=== PATIENT | female | born 1945 ===

== ENCOUNTER 2017-11-27 11:25 | Inpatient (IN) | payer MEDICARE, MEDICAID ==
[2017-11-27 11:29] VITALS: BMI 47.4
--- NOTE | 2017-11-27 11:51 | ED PDOC ---
HPI: Psych/Substance Abuse Time Seen by Provider: 11/27/17 11:28 Chief Complaint (Nursing): Anxiety Chief Complaint (Provider): Anxiety History Per: Patient, Other ([facility] Brian monroe) History/Exam Limitations: no limitations Onset/Duration Of Symptoms: Hrs Current Symptoms Are (Timing): Still Present Suicide/Self Injury Attempted (Context): None Modifying Factor(s): None Associated Symptoms: Anxiety Additional Complaint(s): 72 year old female was brought here via EMS from [facility] for a psychiatric evaluation for suicidal ideation as reported by staff. Patient states she just feels very anxious this morning. Patient reports she usually takes Antivan for anxiety but states the medication is not helping her and feels no relief. Patient states she just has "too much anxiety". Denies suicidal ideation, homicidal ideation, and any other medical complaint. PMD: Dr. Eckert Past Medical History Reviewed: Historical Data, Nursing Documentation, Vital Signs Vital Signs: Last Vital Signs Temp 97.0 F L 11/27/17 11:34 Pulse 81 11/27/17 11:34 Resp 19 11/27/17 11:34 BP 131/78 11/27/17 11:34 Pulse Ox 98 11/27/17 11:34 - Medical History PMH: Anxiety, Bipolar Disorder, Depression, HTN, Hypercholesterolemia Denies: Alzheimer's Disease, Anemia, Arthritis, Asthma, Atrial Fibrillation, Bronchitis, Cardia Arrhythmia, CHF, COPD, Crohn's Disease, Dementia, Diabetes, Diverticulitis, Emphysema, Fractures, Gastritis, Gall Bladder Disease, Hepatitis , HIV, Hyperthyroidism, Hypothyroidism, Kidney Stones, Migraine, Mitral Valve Prolapse, Multiple Sclerosis, Osteoporosis, Pancreatitis, Parkinson's Disease, Peripheral Edema, Personality Disorder, Pneumonia, Pulmonary Embolism, Chronic Kidney Disease, Rheumatoid Arthritis, Seizures, Sickle Cell Disease, Sexually Transmitted Disease, Sleep Apnea, TIA - Surgical History Surgical History: No Surg Hx Denies: Appendectomy, CABG, Carotid Endarterectomy, Cholecystectomy, Coronary Stent, Pacemaker, Tonsillectomy - Family History Family History: States: Unknown Family Hx - Home Medications Home Medications: Ambulatory Orders Medication Instructions Recorded Acetaminophen [Tylenol 325mg tab] 2 tab PO PRN PRN 07/10/17 Bimatoprost [Lumigan] 1 drop OU HS 07/10/17 Gabapentin [Neurontin] 300 mg PO TID 07/10/17 Acetaminophen [Tylenol 325mg tab] 650 mg PO Q4H PRN tab 07/20/17 Aluminum Hydroxide/Magnesium 30 ml PO DAILY PRN udc 07/20/17 [Maalox Plus 30 ml] Dorzolamide 2%/Timolol 0.5% 1 drop OU BID bottle 07/20/17 [Cosopt 2%-0.5% Opht] Famotidine [Pepcid] 20 mg PO 1000,2200 tab 07/20/17 Gabapentin [Neurontin] 300 mg PO TID cap 07/20/17 LORazepam [Ativan] 1 mg PO HS tab 07/20/17 LORazepam [Ativan] 1.5 mg PO BID tab 07/20/17 Latanoprost 0.005% Opht [Xalatan 1 ml OU HS bottle 07/20/17 Opht] Mirtazapine [Remeron] 15 mg PO HS tab 07/20/17 PARoxetine [Paxil] 30 mg PO HS tab 07/20/17 Polyethylene Glycol/Polyvinyl 1 ml OU TID bottle 07/20/17 [Artificial Tears] amLODIPine [Norvasc] 2.5 mg PO DAILY tab 07/20/17 - Allergies Allergies/Adverse Reactions: Allergies Allergy/AdvReac Type Severity Reaction Status Date / Time propoxyphene [From Darvon] Allergy Unknown ANAPHYLAXIS Verified 07/10/17 21:11 Review of Systems ROS Statement: Except As Marked, All Systems Reviewed And Found Negative Psych: Positive for: Anxiety. Negative for: Suicidal ideation (or homicidal ideation ) Physical Exam - Reviewed Nursing Documentation Reviewed: Yes Vital Signs Reviewed: Yes - Physical Exam Appears: Positive for: Non-toxic, No Acute Distress (comfortable ) Head Exam: Positive for: ATRAUMATIC, NORMOCEPHALIC Skin: Positive for: Normal Color, Warm, Dry Eye Exam: Positive for: Normal appearance ENT: Positive for: Normal ENT Inspection Neck: Positive for: Normal Respiratory: Positive for: Normal Breath Sounds Gastrointestinal/Abdominal: Positive for: Soft. Negative for: Tenderness Back: Positive for: Normal Inspection Extremity: Positive for: Normal ROM Neurologic/Psych: Positive for: Alert, Oriented - Laboratory Results Result Diagrams: 11/27/17 14:06 11/27/17 14:06 - ECG O2 Sat by Pulse Oximetry: 98 (RA) Pulse Ox Interpretation: Normal Medical Decision Making Medical Decision Making: Time: 1134 Impression: Anxiety, Depression Plan: -- Crisis Evaluation -- 1:1 Observation Time: 1337 Plan: -- EKG -- Alcohol Serum -- BMP -- Urine Drug Screen -- CBC with differentials -- Portable CXR -- Urinalysis Time: 1357 CXR Results FINDINGS: LUNGS: No active pulmonary disease. PLEURA: No significant pleural effusion identified, no pneumothorax apparent. CARDIOVASCULAR: Normal. OSSEOUS STRUCTURES: No significant abnormalities. VISUALIZED UPPER ABDOMEN: Normal. OTHER FINDINGS: None. IMPRESSION: No active disease. Vital signs are stable. Labs reviewed. In my opinion there are no current acute medical conditions that contraindicate the placement of this patient in a psychiatric unit. Scribe Attestation: Documented by Kassie Connolly, acting as a scribe for Dr. Anni Hickey MD. Provider Scribe Attestation: All medical record entries made by the Scribe were at my direction and personally dictated by me. I have reviewed the chart and agree that the record accurately reflects my personal performance of the history, physical exam, medical decision making, and the department course for this patient. I have also personally directed, reviewed, and agree with the discharge instructions and disposition. Disposition - Clinical Impression Clinical Impression: Major depressive disorder, Anxiety disorder - Patient ED Disposition Is Patient to be Admitted: Yes Counseled Patient/Family Regarding: Studies Performed, Diagnosis - Disposition Disposition Time: 14:44 Condition: FAIR - Pt Status Changed To: Hospital Disposition Of: Inpatient - Admit Certification Admit to Inpatient:: After my assessment, the patient will require hospitalization for at least two midnights. This is because of the severity of symptoms shown, intensity of services needed, and/or the medical risk in this patient being treated as an outpatient. - POA Present On Arrival: None
--- NOTE | 2017-11-27 13:59 | RAD ---
HISTORY: medical clearance COMPARISON: 08/06/2011 FINDINGS: LUNGS: No active pulmonary disease. PLEURA: No significant pleural effusion identified, no pneumothorax apparent. CARDIOVASCULAR: Normal. OSSEOUS STRUCTURES: No significant abnormalities. VISUALIZED UPPER ABDOMEN: Normal. OTHER FINDINGS: None. IMPRESSION: No active disease.
[2017-11-27 14:17] LABS: SQUAMOUS EPITHIAL 1 /hpf (0-5); URINE BACTERIA OCC (<OCC); URINE BILIRUBIN NEGATIVE (NEGATIVE); URINE BLOOD NEGATIVE (NEGATIVE); URINE CLARITY CLEAR (Clear); URINE COLOR YELLOW (YELLOW); URINE GLUCOSE (UA) NEG (Normal); URINE LEUKOCYTE ESTERASE NEG Leu/uL (Negative); URINE PROTEIN NEGATIVE (NEGATIVE); URINE UROBILINOGEN 0.2-1.0 mg/dL (0.2-1.0)
[2017-11-27 14:19] LABS: BLOOD UREA NITROGEN 20 mg/dl (7-17); CALCIUM 8.9 mg/dL (8.4-10.2); GFR AFRICAN-AMERICAN > 60; GFR NON-AFRICAN AMERICAN > 60
[2017-11-27 14:21] LABS: BASO % 0.4 % (0.0-2.0); EOS # 0.2 K/uL (0.0-0.7); EOS % 2.3 % (0.0-4.0); HEMOGLOBIN 13.5 g/dL (12.0-16.0); LYMPH # 1.2 K/uL (1.0-4.3); LYMPH % 16.4 % (20.0-40.0); MEAN CELL VOLUME 90.7 fl (81.0-99.0); MEAN CORPUSCULAR HEMOGLOBIN 31.3 pg (27.0-31.0); MEAN CORPUSCULAR HGB CONC 34.5 g/dL (33.0-37.0); MEAN PLATELET VOLUME 9.9 fl (7.2-11.7); MONO # 0.5 K/uL (0.0-0.8); MONO % 6.4 % (0.0-10.0); NEUT # 5.5 K/uL (1.8-7.0); NEUT % 74.5 % (50.0-75.0); RBC 4.32 Mil/uL (3.80-5.20); RED CELL DISTRIBUTION WIDTH 13.5 % (11.5-14.5); WHITE BLOOD COUNT 7.4 K/uL (4.8-10.8)
[2017-11-27 14:26] LABS: BARBITURATES, UR NEGATIVE (NEGATIVE); BENZODIAZEPINES, UR NEGATIVE (NEGATIVE); OPIATES, UR NEGATIVE (NEGATIVE); PHENCYCLIDINE, UR NEGATIVE (NEGATIVE)
[2017-11-27 18:25] VITALS: O2SAT 98
[2017-11-27] MEDS ORDERED: Bismuth Subsalicylate 262 mg/15 ml Sus (240 ml) PO PRN (18:26)
[2017-11-27] MEDS ORDERED: Magnesium Hydroxide Susp 30 ml UD PO PRN (18:26)
--- NOTE | 2017-11-27 18:55 | PCM.BM ---
Treatment Plan Problems - Problems identified on initial assessmt Problem 1 Date Initiated: 11/27/17 Time Initiated: 18:54 Assessment reference: NA Status: Active Hopelessness/Helplessness Assessment reference: NA Treatment assets and liabiliti Patient Assests: cooperative, negotiates basic needs Patient Liabilities: medical problems - Milieu Protocol Maintain good personal hygiene: daily Encourage regular showers, daily Remind patient to perform daily oral care, daily Assist patient to perform ADL's Conduct patient checks and document Observation sheet: Q15 minutes Maintain personal safety: every shift Educate patient to report safety concerns to staff, every shift Monitor environment for contraband/sharps Medication safety: Monitor for expected outcome, potential side effects: every shift, Assess barriers to learning: every shift, Assess readiness for medication education: every shift
--- NOTE | 2017-11-27 19:16 | CP.PCM.CON ---
History of Present Illness - History of Present Illness History of Present Illness: 72 yo female with history HTN and anxiety brought [facility] because of suicidal ideation. Review of Systems - Review of Systems All systems: reviewed and no additional remarkable complaints except (aside from those mentioned above, 12 point system review were negative by me) Past Patient History - Infectious Disease Hx of Infectious Diseases: None - Tetanus Immunizations Tetanus Immunization: Unknown - Past Social History Smoking Status: Never Smoked Chewing Tobacco Use: No Cigar Use: No Alcohol: None Home Situation {Lives}: Residential - CARDIAC Hx Atrial Fibrillation: No Hx Cardia Arrhythmia: No Hx Congestive Heart Failure: No Hx Hypercholesterolemia: Yes Hx Hypertension: Yes Hx Mitral Valve Prolapse: No Hx Pacemaker: No Hx Peripheral Edema: No - PULMONARY Hx Asthma: No Hx Bronchitis: No Hx Chronic Obstructive Pulmonary Disease (COPD): No Hx Emphysema: No Hx Pneumonia: No Hx Pulmonary Embolism: No Hx Sleep Apnea: No - NEUROLOGICAL Hx Alzheimer's Disease: No Hx Dementia: No Hx Migraine: No Hx Multiple Sclerosis: No Hx Parkinson's Disease: No Hx Seizures: No Hx Transient Ischemic Attacks (TIA): No - HEENT Hx HEENT Problems: No - RENAL Hx Chronic Kidney Disease: No Hx Kidney Stones: No - ENDOCRINE/METABOLIC Hx Hyperthyroidism: No Hx Hypothyroidism: No - HEMATOLOGICAL/ONCOLOGICAL Hx Anemia: No Hx Human Immunodeficiency Virus (HIV): No Hx Sickle Cell Disease: No - INTEGUMENTARY Hx Dermatological Problems: No - MUSCULOSKELETAL/RHEUMATOLOGICAL Hx Arthritis: No Hx Fractures: No Hx Osteoporosis: No Hx Rheumatoid Arthritis: No - GASTROINTESTINAL Hx Crohn's Disease: No Hx Diverticulitis: No Hx Gall Bladder Disease: No Hx Gastritis: No Hx Pancreatitis: No - GENITOURINARY/GYNECOLOGICAL Hx Sexually Transmitted Disorders: No - PSYCHIATRIC Hx Anxiety: Yes Hx Bipolar Disorder: Yes Hx Depression: Yes - SURGICAL HISTORY Hx Appendectomy: No Hx Carotid Endarterectomy: No Hx Cholecystectomy: No Hx Coronary Artery Bypass Graft: No Hx Coronary Stent: No Hx Tonsillectomy: No - ANESTHESIA Hx Anesthesia: No Meds Allergies/Adverse Reactions: Allergies Allergy/AdvReac Type Severity Reaction Status Date / Time propoxyphene [From Darvon] Allergy Unknown ANAPHYLAXIS Verified 07/10/17 21:11 - Medications Medications: Current Medications Acetaminophen (Tylenol 325mg Tab) 650 mg PO Q4 PRN PRN Reason: Pain, moderate (4-7) Al Hydrox/Mg Hydrox/Simethicone (Maalox Plus 30 Ml) 30 ml PO Q4 PRN PRN Reason: Dyspepsia Amlodipine Besylate (Norvasc) 2.5 mg PO DAILY ARSLAN Artificial Tears (Artificial Tears) 1 drop OU Q6 ARSLAN Bismuth Subsalicylate (Pepto-Bismol) 524 mg PO Q4 PRN PRN Reason: Diarrhea Famotidine (Pepcid) 20 mg PO HS ARSLAN Gabapentin (Neurontin) 300 mg PO TID ARSLAN Latanoprost (Xalatan Opht) 1 drop OU HS ARSLAN Lorazepam (Ativan) 0.5 mg PO HS PRN PRN Reason: Insomnia Stop: 12/11/17 18:27 Lorazepam (Ativan) 0.5 mg PO Q6 PRN PRN Reason: Agitation Lorazepam (Ativan) 0.5 mg IM Q6 PRN PRN Reason: Agitation Magnesium Hydroxide (Milk Of Magnesia) 30 ml PO HS PRN PRN Reason: Constipation Physical Exam - Constitutional Appears: No Acute Distress - Head Exam Head Exam: ATRAUMATIC - Eye Exam Eye Exam: PERRL. absent: Scleral icterus - ENT Exam ENT Exam: Mucous Membranes Moist - Neck Exam Neck exam: Negative for: Meningismus - Respiratory Exam Respiratory Exam: absent: Rales, Rhonchi, Wheezes, Respiratory Distress - Cardiovascular Exam Cardiovascular Exam: REGULAR RHYTHM, +S1, +S2 - GI/Abdominal Exam GI & Abdominal Exam: Soft. absent: Tenderness - Rectal Exam Rectal Exam: Deferred - Neurological Exam Neurological exam: Alert - Psychiatric Exam Psychiatric exam: Anxious - Skin Skin Exam: Dry, Intact Results - Vital Signs Recent Vital Signs: Last Vital Signs Temp 98 F 11/27/17 18:24 Pulse 81 11/27/17 18:24 Resp 18 11/27/17 18:24 BP 130/71 11/27/17 18:24 Pulse Ox 98 11/27/17 18:24 - Labs Result Diagrams: 11/27/17 14:06 11/27/17 14:06 Labs: Laboratory Results - last 24 hr 11/27/17 11/27/17 11/27/17 14:01 14:01 14:06 WBC RBC Hgb Hct MCV MCH MCHC RDW Plt Count MPV Neut % (Auto) Lymph % (Auto) [place] % (Auto) Eos % (Auto) Baso % (Auto) Neut # (Auto) Lymph # (Auto) [place] # (Auto) Eos # (Auto) Baso # (Auto) Sodium 143 Potassium 3.8 Chloride 104 Carbon Dioxide 25 Anion Gap 18 BUN 20 H Creatinine 0.8 Est GFR ( Amer) > 60 Est GFR (Non-Af Amer) > 60 Random Glucose 124 H Calcium 8.9 Urine Color Yellow Urine Clarity Clear Urine pH 6.0 Ur Specific Palm 1.010 Urine Protein Negative Urine Glucose (UA) Neg Urine Ketones Negative Urine Blood Negative Urine Nitrate Negative Urine Bilirubin Negative Urine Urobilinogen 0.2-1.0 Ur Leukocyte Esterase Neg Urine RBC (Auto) < 1 Urine Microscopic WBC 1 Ur Squamous Epith Cells 1 Urine Bacteria Occ H Urine Opiates Screen Negative Urine Methadone Screen Negative Ur Barbiturates Screen Negative Ur Phencyclidine Scrn Negative Ur Amphetamines Screen Negative U Benzodiazepines Scrn Negative U Oth Cocaine Metabols Negative U Cannabinoids Screen Negative Alcohol, Quantitative < 10 11/27/17 14:06 WBC 7.4 RBC 4.32 Hgb 13.5 Hct 39.2 MCV 90.7 MCH 31.3 H MCHC 34.5 RDW 13.5 Plt Count 157 MPV 9.9 Neut % (Auto) 74.5 Lymph % (Auto) 16.4 L [place] % (Auto) 6.4 Eos % (Auto) 2.3 Baso % (Auto) 0.4 Neut # (Auto) 5.5 Lymph # (Auto) 1.2 [place] # (Auto) 0.5 Eos # (Auto) 0.2 Baso # (Auto) 0.0 Sodium Potassium Chloride Carbon Dioxide Anion Gap BUN Creatinine Est GFR ( Amer) Est GFR (Non-Af Amer) Random Glucose Calcium Urine Color Urine Clarity Urine pH Ur Specific Palm Urine Protein Urine Glucose (UA) Urine Ketones Urine Blood Urine Nitrate Urine Bilirubin Urine Urobilinogen Ur Leukocyte Esterase Urine RBC (Auto) Urine Microscopic WBC Ur Squamous Epith Cells Urine Bacteria Urine Opiates Screen Urine Methadone Screen Ur Barbiturates Screen Ur Phencyclidine Scrn Ur Amphetamines Screen U Benzodiazepines Scrn U Oth Cocaine Metabols U Cannabinoids Screen Alcohol, Quantitative Assessment & Plan (1) Suicidal ideation Status: Acute Comment: psyche is managing (2) Anxiety disorder Status: Acute Comment: psyche is managing (3) HTN (hypertension) Status: Acute Comment: BP stable. continue Amlodipine
[2017-11-27] MEDS: Artificial Tears Opht Soln OU SCH (21:25)
[2017-11-27] MEDS: Latanoprost 0.005% Opht SOUTION OU SCH (21:26)
[2017-11-28] MEDS: Artificial Tears Opht Soln OU SCH ×4 (05:51→21:08)
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
[2017-11-28 18:29] LABS: SQUAMOUS EPITHIAL 4 /hpf (0-5); URINE BACTERIA OCC (<OCC); URINE BILIRUBIN NEGATIVE (NEGATIVE); URINE BLOOD NEGATIVE (NEGATIVE); URINE CLARITY SLIGHTY-CLOUDY (Clear); URINE COLOR YELLOW (YELLOW); URINE GLUCOSE (UA) NEG (Normal); URINE LEUKOCYTE ESTERASE TRACE Leu/uL (Negative); URINE PROTEIN NEGATIVE (NEGATIVE); URINE UROBILINOGEN 0.2-1.0 mg/dL (0.2-1.0)
[2017-11-28] MEDS: Latanoprost 0.005% Opht SOUTION OU SCH (21:08)
[2017-11-29 06:29] LABS: ALB/GLOB RATIO 1.1 (1.0-2.1); ALBUMIN 3.7 g/dL (3.5-5.0); ALT/SGPT 25 U/L (9-52); AST/SGOT 27 U/L (14-36); BLOOD UREA NITROGEN 20 mg/dl (7-17); CALCIUM 8.8 mg/dL (8.4-10.2); GFR AFRICAN-AMERICAN > 60; GFR NON-AFRICAN AMERICAN > 60
--- NOTE | 2017-11-29 06:37 | CARD ---
APPROVED REPORT EKG Measurement Heart [id number] <Conclusion> Normal sinus rhythm Normal ECG
--- NOTE | 2017-11-29 09:40 | PCM.PYCHPN ---
Psychiatric Progress Note - Psychiatric Progress Note Patient seen today, length of contact: Patient evaluated, case discussed with team, chart reviewed Patient Chief Complaint: "I'm depressed." Problems Identified/Issues Discussed: Patient was very tearful during interview. She reports severe depression and anxiety. Poor sleep at night. +Decreased appetite. She reports difficulty with her memory. No current SI/HI/AH/VH. Medication Change: Yes (Increase Remeron) Medical Record Reviewed: Yes Consults ordered or reviewed: Medicine consult Mental Status Examination - Cognitive Function Orientation: Person, Place, Situation Memory: Impaired Attention: WNL Concentration: Poor Association: WNL Fund of Knowledge: [facility] Decription of patient's judgement and insights: Fair I/J - Mood Mood: Depressed, Anxious - Affect Affect: Constricted, Depressed, Other (Tearful) - Speech Speech: Appropriate - Formal Thought Process Formal Thought Process: No Impairment Psychotic Thoughts and Behaviors: No AH/VH/paranoia/delusions - Suicidal Ideation Suicidal Ideation: No - Homicidal Ideation Homicidal Ideation: No Goal/Treatment Plan - Goal/Treatment Plan Need for Continued Stay: Remain at risks for inpatient hospitalization, Severe depression anxiety, Discharge may exacerbated symptoms Progress Toward Problem(s) and Goals/Treatment Plan: Major Depressive Disorder; Generalized Anxiety Disorder -Individual and group therapy -Medicine consult -Continue Paxil -Increase Remeron -Ativan PRN anxiety -Disposition planning Estimated Date of D/C: 12/06/17
[2017-11-29] MEDS: Artificial Tears Opht Soln OU SCH ×3 (09:56→21:14)
[2017-11-29 14:18] LABS: HDL CHOLESTEROL 52 MG/DL (30-70); LDL CHOLESTEROL 96 mg/dL (0-129)
[2017-11-29] MEDS: Latanoprost 0.005% Opht SOUTION OU SCH (21:13)
[2017-11-30] MEDS: Artificial Tears Opht Soln OU SCH ×3 (09:01→21:15)
--- NOTE | 2017-11-30 09:20 | PCM.PYCHPN ---
Psychiatric Progress Note - Psychiatric Progress Note Patient seen today, length of contact: Patient evaluated, case discussed with team, chart reviewed Patient Chief Complaint: "I'm depressed." Problems Identified/Issues Discussed: Patient continues to be tearful, depressed and anxious. Poor sleep at night. +Decreased appetite. No current SI/HI/AH/VH. Medication Change: No Medical Record Reviewed: Yes Consults ordered or reviewed: Medicine consult Mental Status Examination - Cognitive Function Orientation: Person, Place, Situation Memory: Impaired Attention: WNL Concentration: Poor Association: WNL Fund of Knowledge: [facility] Decription of patient's judgement and insights: Fair I/J - Mood Mood: Depressed, Anxious - Affect Affect: Constricted, Depressed, Other (Tearful) - Speech Speech: Appropriate - Formal Thought Process Formal Thought Process: No Impairment Psychotic Thoughts and Behaviors: No AH/VH/paranoia/delusions - Suicidal Ideation Suicidal Ideation: No - Homicidal Ideation Homicidal Ideation: No Goal/Treatment Plan - Goal/Treatment Plan Need for Continued Stay: Remain at risks for inpatient hospitalization, Severe depression anxiety, Discharge may exacerbated symptoms Progress Toward Problem(s) and Goals/Treatment Plan: Major Depressive Disorder; Generalized Anxiety Disorder -Individual and group therapy -Medicine consult -Continue Paxil -Continue Remeron -Ativan PRN anxiety -Disposition planning Estimated Date of D/C: 12/06/17
[2017-11-30] MEDS: Latanoprost 0.005% Opht SOUTION OU SCH (21:07)
[2017-12-01] MEDS: Artificial Tears Opht Soln OU SCH ×5 (05:12→21:10)
--- NOTE | 2017-12-01 10:52 | PCM.PYCHPN ---
Psychiatric Progress Note - Psychiatric Progress Note Patient seen today, length of contact: Patient evaluated, case discussed with team, chart reviewed Patient Chief Complaint: "I'm depressed." Problems Identified/Issues Discussed: Patient to reports feeling severely depressed and anxious. She is tearful and cries many times during the day. +Sleep/appetite disturbances. We discussed continued titration of her medications. No current adverse effects to medications reported. No current SI/HI/AH/VH. Medication Change: No Medical Record Reviewed: Yes Consults ordered or reviewed: Medicine consult, Physical therapy Mental Status Examination - Cognitive Function Orientation: Person, Place, Situation Memory: Impaired Attention: WNL Concentration: Poor Association: WNL Fund of Knowledge: WNL Decription of patient's judgement and insights: Fair I/J - Mood Mood: Depressed, Anxious - Affect Affect: Constricted, Depressed, Other (Tearful) - Speech Speech: Appropriate - Formal Thought Process Formal Thought Process: No Impairment Psychotic Thoughts and Behaviors: No AH/VH/paranoia/delusions - Suicidal Ideation Suicidal Ideation: No - Homicidal Ideation Homicidal Ideation: No Goal/Treatment Plan - Goal/Treatment Plan Need for Continued Stay: Remain at risks for inpatient hospitalization, Severe depression anxiety, Discharge may exacerbated symptoms Progress Toward Problem(s) and Goals/Treatment Plan: Major Depressive Disorder; Generalized Anxiety Disorder -Individual and group therapy -Medicine consult -Will increase Paxil to 40 mg PO Daily tomorrow -Continue Remeron 22.5 mg PO HS -Ativan PRN anxiety -Disposition planning Estimated Date of D/C: 12/07/17
[2017-12-01] MEDS: Latanoprost 0.005% Opht SOUTION OU SCH (21:03)
[2017-12-02] MEDS: Artificial Tears Opht Soln OU SCH ×4 (04:01→21:03)
--- NOTE | 2017-12-02 10:05 | PCM.PYCHPN ---
Psychiatric Progress Note - Psychiatric Progress Note Patient seen today, length of contact: Patient evaluated, case discussed with team, chart reviewed Patient Chief Complaint: "I'm depressed." Problems Identified/Issues Discussed: Patient continues to reports feeling severely depressed and anxious. She is tearful and labile. +Sleep/appetite disturbances. We discussed continued titration of her medications. No current adverse effects to medications reported. No current SI/HI/AH/VH. Medication Change: Yes (Increase Paxil to 40 mg PO Daily) Medical Record Reviewed: Yes Consults ordered or reviewed: Medicine consult, Physical therapy Mental Status Examination - Cognitive Function Orientation: Person, Place, Situation Memory: Impaired Attention: WNL Concentration: Poor Association: WNL Fund of Knowledge: WNL Decription of patient's judgement and insights: Fair I/J - Mood Mood: Depressed, Anxious - Affect Affect: Constricted, Depressed, Other (Tearful) - Speech Speech: Appropriate - Formal Thought Process Formal Thought Process: No Impairment Psychotic Thoughts and Behaviors: No AH/VH/paranoia/delusions - Suicidal Ideation Suicidal Ideation: No - Homicidal Ideation Homicidal Ideation: No Goal/Treatment Plan - Goal/Treatment Plan Need for Continued Stay: Remain at risks for inpatient hospitalization, Severe depression anxiety, Discharge may exacerbated symptoms Progress Toward Problem(s) and Goals/Treatment Plan: Major Depressive Disorder; Generalized Anxiety Disorder -Individual and group therapy -Medicine consult -Increase Paxil to 40 mg PO Daily -Continue Remeron 22.5 mg PO HS -Ativan PRN anxiety -Disposition planning Estimated Date of D/C: 12/07/17
[2017-12-02] MEDS: Latanoprost 0.005% Opht SOUTION OU SCH (21:04)
[2017-12-02] MEDS: Alum-Mag Hydrox-Simethicone Susp (30 mL) PO PRN (21:08)
[2017-12-03] MEDS: Artificial Tears Opht Soln OU SCH ×4 (03:45→21:06)
--- NOTE | 2017-12-03 08:15 | PCM.PYCHPN ---
Psychiatric Progress Note - Psychiatric Progress Note Patient seen today, length of contact: Patient evaluated, case discussed with team, chart reviewed Patient Chief Complaint: "I'm depressed." Problems Identified/Issues Discussed: Patient continues to reports feeling severely depressed and anxious. She is tearful at times. +Improved appetite. +Continued sleep disturbances. No current adverse effects to medications reported. No current SI/HI/AH/VH. Medication Change: No Medical Record Reviewed: Yes Consults ordered or reviewed: Medicine consult, Physical therapy Mental Status Examination - Cognitive Function Orientation: Person, Place, Situation Memory: Impaired Attention: WNL Concentration: Poor Association: WNL Fund of Knowledge: [facility] Decription of patient's judgement and insights: Fair I/J - Mood Mood: Depressed, Anxious - Affect Affect: Constricted, Depressed, Other (Tearful) - Speech Speech: Appropriate - Formal Thought Process Formal Thought Process: No Impairment Psychotic Thoughts and Behaviors: No AH/VH/paranoia/delusions - Suicidal Ideation Suicidal Ideation: No - Homicidal Ideation Homicidal Ideation: No Goal/Treatment Plan - Goal/Treatment Plan Need for Continued Stay: Remain at risks for inpatient hospitalization, Severe depression anxiety, Discharge may exacerbated symptoms Progress Toward Problem(s) and Goals/Treatment Plan: Major Depressive Disorder; Generalized Anxiety Disorder -Individual and group therapy -Medicine consult -Continue Paxil 40 mg PO Daily -Continue Remeron 22.5 mg PO HS -Ativan PRN anxiety -Disposition planning Estimated Date of D/C: 12/08/17
[2017-12-03] MEDS: Alum-Mag Hydrox-Simethicone Susp (30 mL) PO PRN ×2 (12:18→16:21)
--- NOTE | 2017-12-03 13:10 | CP.PCM.CON ---
History of Present Illness - History of Present Illness History of Present Illness: Pt is a 72 year old female admitted to [facility] and referred to the physician underwriter for evaluation. ON the DRS, Pt scored an overall score of 119. Pt scored within normal limits on Attention, Construction, Conceptualization and Initiation tasks. Pt's Memory skills fell within the deficient range. Overall 119 Attention 33 (wnl) Construction 4 (wnl) Conceptualization 32 (wnl) Initiation 34 memory 16 (deficient). Deficits in Memory were noted with intact skills in other areas. Thank you for this referral, Dr. Delgado Past Patient History - Infectious Disease Hx of Infectious Diseases: None - Tetanus Immunizations Tetanus Immunization: Unknown - Past Social History Smoking Status: Never Smoked Chewing Tobacco Use: No Cigar Use: No Alcohol: None Home Situation {Lives}: [facility] - CARDIAC Hx Atrial Fibrillation: No Hx Cardia Arrhythmia: No Hx Congestive Heart Failure: No Hx Hypercholesterolemia: Yes Hx Hypertension: Yes Hx Mitral Valve Prolapse: No Hx Pacemaker: No Hx Peripheral Edema: No - PULMONARY Hx Asthma: No Hx Bronchitis: No Hx Chronic Obstructive Pulmonary Disease (COPD): No Hx Emphysema: No Hx Pneumonia: No Hx Pulmonary Embolism: No Hx Sleep Apnea: No - NEUROLOGICAL Hx Alzheimer's Disease: No Hx Dementia: No Hx Migraine: No Hx Multiple Sclerosis: No Hx Parkinson's Disease: No Hx Seizures: No Hx Transient Ischemic Attacks (TIA): No - HEENT Hx HEENT Problems: No - RENAL Hx Chronic Kidney Disease: No Hx Kidney Stones: No - ENDOCRINE/METABOLIC Hx Hyperthyroidism: No Hx Hypothyroidism: No - HEMATOLOGICAL/ONCOLOGICAL Hx Anemia: No Hx Human Immunodeficiency Virus (HIV): No Hx Sickle Cell Disease: No - INTEGUMENTARY Hx Dermatological Problems: No - MUSCULOSKELETAL/RHEUMATOLOGICAL Hx Arthritis: No Hx Fractures: No Hx Osteoporosis: No Hx Rheumatoid Arthritis: No - GASTROINTESTINAL Hx Crohn's Disease: No Hx Diverticulitis: No Hx Gall Bladder Disease: No Hx Gastritis: No Hx Pancreatitis: No - GENITOURINARY/GYNECOLOGICAL Hx Sexually Transmitted Disorders: No - PSYCHIATRIC Hx Anxiety: Yes Hx Bipolar Disorder: Yes Hx Depression: Yes - SURGICAL HISTORY Hx Appendectomy: No Hx Carotid Endarterectomy: No Hx Cholecystectomy: No Hx Coronary Artery Bypass Graft: No Hx Coronary Stent: No Hx Tonsillectomy: No - ANESTHESIA Hx Anesthesia: No Meds Allergies/Adverse Reactions: Allergies Allergy/AdvReac Type Severity Reaction Status Date / Time propoxyphene [From Darvon] Allergy Unknown ANAPHYLAXIS Verified 07/10/17 21:11 - Medications Medications: Current Medications Acetaminophen (Tylenol 325mg Tab) 650 mg PO Q4 PRN PRN Reason: Pain, moderate (4-7) Last Admin: 12/03/17 08:11 Dose: 650 mg Al Hydrox/Mg Hydrox/Simethicone (Maalox Plus 30 Ml) 30 ml PO Q4 PRN PRN Reason: Dyspepsia Last Admin: 12/03/17 12:18 Dose: 30 ml Amlodipine Besylate (Norvasc) 2.[address] [facility] Last Admin: 12/03/17 08:13 Dose: 2.5 mg Artificial Tears (Artificial Tears) [address] [facility] Last Admin: 12/03/17 10:49 Dose: Not Given Bismuth Subsalicylate (Pepto-Bismol) 524 mg PO Q4 PRN PRN Reason: Diarrhea Last Admin: 11/29/17 21:14 Dose: 524 mg Famotidine (Pepcid) [address] [facility] Last Admin: 12/02/17 21:03 Dose: 20 mg Gabapentin (Neurontin) [address] [facility] Last Admin: 12/03/17 12:14 Dose: 300 mg Ibuprofen (Motrin Tab) 600 mg PO Q6 PRN PRN Reason: Pain, moderate (4-7) Latanoprost (Xalatan Opht) [address] [facility] Last Admin: 12/02/17 21:04 Dose: 1 drop Lorazepam (Ativan) 0.5 mg PO HS PRN PRN Reason: Insomnia Stop: 12/11/17 18:27 Last Admin: 11/29/17 21:12 Dose: 0.5 mg Lorazepam (Ativan) 0.5 mg PO Q6 PRN PRN Reason: Agitation Last Admin: 12/03/17 08:12 Dose: 0.5 mg Lorazepam (Ativan) 0.5 mg IM Q6 PRN PRN Reason: Agitation Magnesium Hydroxide (Milk Of Magnesia) 30 ml PO HS PRN PRN Reason: Constipation Mirtazapine (Remeron) 22.[address] [facility] Last Admin: 12/02/17 21:03 Dose: 22.5 mg Paroxetine HCl (Paxil) [address] [facility] Last Admin: 12/03/17 08:14 Dose: 40 mg Results - Vital Signs Recent Vital Signs: Last Vital Signs Temp 97.3 F L 12/03/17 06:00 Pulse 69 12/03/17 08:13 Resp 18 12/03/17 06:00 BP 140/70 12/03/17 08:13 Pulse Ox 98 11/27/17 18:24 - Labs Result Diagrams: 11/27/17 14:06 11/29/17 05:45
[2017-12-03] MEDS: Latanoprost 0.005% Opht SOUTION OU SCH (21:07)
[2017-12-04] MEDS: Artificial Tears Opht Soln OU SCH ×4 (04:00→21:06)
--- NOTE | 2017-12-04 13:15 | PCM.PYCHPN ---
Psychiatric Progress Note - Psychiatric Progress Note Patient seen today, length of contact: Patient evaluated, case discussed with team, chart reviewed Patient Chief Complaint: I am very depressed Problems Identified/Issues Discussed: pt seen in bed, continues to feel depressed, anxious, isolating in her room, denied any current suicidal or homicidal ideation DSM 5 Symptoms Update: major depression generalized anxiety disorder Medication Change: No Medical Record Reviewed: Yes Mental Status Examination - Cognitive Function Orientation: Person, Place, Situation Memory: Impaired Attention: WNL Concentration: Poor Association: WNL Fund of Knowledge: WNL - Mood Mood: Depressed, Anxious - Affect Affect: Constricted, Depressed, Other (Tearful) - Speech Speech: Appropriate - Formal Thought Process Formal Thought Process: No Impairment - Suicidal Ideation Suicidal Ideation: No - Homicidal Ideation Homicidal Ideation: No Goal/Treatment Plan - Goal/Treatment Plan Need for Continued Stay: Remain at risks for inpatient hospitalization, Severe depression anxiety, Discharge may exacerbated symptoms Progress Toward Problem(s) and Goals/Treatment Plan: continue current management Estimated Date of D/C: 12/08/17
[2017-12-04] MEDS: Alum-Mag Hydrox-Simethicone Susp (30 mL) PO PRN (18:54)
[2017-12-04] MEDS: Latanoprost 0.005% Opht SOUTION OU SCH (21:05)
[2017-12-05] MEDS: Artificial Tears Opht Soln OU SCH ×4 (04:01→21:05)
--- NOTE | 2017-12-05 14:25 | PCM.PYCHPN ---
Psychiatric Progress Note - Psychiatric Progress Note Patient seen today, length of contact: Patient evaluated, case discussed with team, chart reviewed Patient Chief Complaint: I am still depressed Problems Identified/Issues Discussed: pt seen in bed, continues to depressed mood, , anxious affect, isolating in her room, denied any current suicidal or homicidal ideation DSM 5 Symptoms Update: dementia with depression generalized anxiety disorder Medication Change: No Medical Record Reviewed: Yes Mental Status Examination - Cognitive Function Orientation: Person, Place, Situation Memory: Impaired Attention: WNL Concentration: Poor Association: WNL Fund of Knowledge: WNL - Mood Mood: Depressed, Anxious - Affect Affect: Constricted, Depressed, Other (Tearful) - Speech Speech: Appropriate - Formal Thought Process Formal Thought Process: No Impairment - Suicidal Ideation Suicidal Ideation: No - Homicidal Ideation Homicidal Ideation: No Goal/Treatment Plan - Goal/Treatment Plan Need for Continued Stay: Remain at risks for inpatient hospitalization, Severe depression anxiety, Discharge may exacerbated symptoms Progress Toward Problem(s) and Goals/Treatment Plan: continue current medication CBT supportive therapy Estimated Date of D/C: 12/08/17
[2017-12-05] MEDS: Latanoprost 0.005% Opht SOUTION OU SCH (21:05)
[2017-12-06] MEDS: Artificial Tears Opht Soln OU SCH ×4 (04:50→21:04)
--- NOTE | 2017-12-06 07:52 | PCM.PYCHPN ---
Psychiatric Progress Note - Psychiatric Progress Note Patient seen today, length of contact: Patient evaluated, case discussed with team, chart reviewed Patient Chief Complaint: "I'm depressed." Problems Identified/Issues Discussed: Patient continues to reports feeling severely depressed and anxious. She is intermittently tearful. +Continued sleep disturbances. No current adverse effects to medications reported. No current SI/HI/AH/VH. Medication Change: Yes (Increase Remeron to 30 mg PO HS) Medical Record Reviewed: Yes Consults ordered or reviewed: Medicine consult, Physical therapy Mental Status Examination - Cognitive Function Orientation: Person, Place, Situation Memory: Impaired Attention: WNL Concentration: Poor Association: WNL Fund of Knowledge: [facility] Decription of patient's judgement and insights: Fair I/J - Mood Mood: Depressed, Anxious - Affect Affect: Constricted, Depressed, Other (Tearful) - Speech Speech: Appropriate - Formal Thought Process Formal Thought Process: No Impairment Psychotic Thoughts and Behaviors: No AH/VH/paranoia/delusions - Suicidal Ideation Suicidal Ideation: No - Homicidal Ideation Homicidal Ideation: No Goal/Treatment Plan - Goal/Treatment Plan Need for Continued Stay: Remain at risks for inpatient hospitalization, Severe depression anxiety, Discharge may exacerbated symptoms Progress Toward Problem(s) and Goals/Treatment Plan: Major Depressive Disorder; Generalized Anxiety Disorder -Individual and group therapy -Medicine consult -Continue Paxil 40 mg PO Daily -Increase Remeron to 30 mg PO HS -Ativan PRN anxiety -Disposition planning Estimated Date of D/C: 12/09/17
[2017-12-06] MEDS: Alum-Mag Hydrox-Simethicone Susp (30 mL) PO PRN (18:30)
[2017-12-06] MEDS: Latanoprost 0.005% Opht SOUTION OU SCH (21:05)
[2017-12-07] MEDS: Artificial Tears Opht Soln OU SCH ×4 (04:50→21:06)
--- NOTE | 2017-12-07 09:26 | PCM.PYCHPN ---
Psychiatric Progress Note - Psychiatric Progress Note Patient seen today, length of contact: Patient evaluated, case discussed with team, chart reviewed Patient Chief Complaint: "I'm depressed." Problems Identified/Issues Discussed: Patient continues to report feeling severely depressed and anxious. Yesterday she was yelling at staff and demanding medications (benzos). 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 We discussed the dangers of chronic benzo use and discussed that benzos will be stopped. We discussed starting Vistaril PRN anxiety. No current adverse effects to medications reported. No current SI/HI/AH/VH. Medication Change: Yes (Stop PRN Ativan, Start Vistaril PRN) Medical Record Reviewed: Yes Consults ordered or reviewed: Medicine consult, Physical therapy Mental Status Examination - Cognitive Function Orientation: Person, Place, Situation, Time Memory: Impaired Attention: WNL Concentration: Poor Association: WNL Fund of Knowledge: WNL Decription of patient's judgement and insights: Fair I/J - Mood Mood: Depressed, Anxious - Affect Affect: Constricted, Depressed, Other (Tearful) - Speech Speech: Appropriate - Formal Thought Process Formal Thought Process: No Impairment Psychotic Thoughts and Behaviors: No AH/VH/paranoia/delusions - Suicidal Ideation Suicidal Ideation: No - Homicidal Ideation Homicidal Ideation: No Goal/Treatment Plan - Goal/Treatment Plan Need for Continued Stay: Remain at risks for inpatient hospitalization, Severe depression anxiety, Discharge may exacerbated symptoms Progress Toward Problem(s) and Goals/Treatment Plan: Major Depressive Disorder; Generalized Anxiety Disorder -Individual and group therapy -Medicine consult -Continue Paxil 40 mg PO Daily -Contine Remeron 30 mg PO HS -Stop Ativan PRN, start Vistaril PRN -Disposition planning Estimated Date of D/C: 12/10/17
--- NOTE | 2017-12-07 14:41 | PCM.BM ---
Treatment Plan Problems - Problems identified on initial assessmt Problem 1 Date Initiated: 11/27/17 Time Initiated: 18:54 Assessment reference: NA Status: Active Hopelessness/Helplessness Assessment reference: NA Treatment assets and liabiliti Patient Assests: cooperative, negotiates basic needs Patient Liabilities: medical problems - Milieu Protocol Maintain good personal hygiene: daily Encourage regular showers, daily Remind patient to perform daily oral care, daily Assist patient to perform ADL's Conduct patient checks and document Observation sheet: Q15 minutes Maintain personal safety: every shift Educate patient to report safety concerns to staff, every shift Monitor environment for contraband/sharps Medication safety: Monitor for expected outcome, potential side effects: every shift, Assess barriers to learning: every shift, Assess readiness for medication education: every shift Milieu Narrative: Major Depressive Disorder; Generalized Anxiety Disorder -Individual and group therapy -Medicine consult -Continue Paxil 40 mg PO Daily -Contine Remeron 30 mg PO HS -Stop Ativan PRN, start Vistaril PRN -Disposition planning Family Contact Family involvement: Family/SO is involved Family contact: Patient agrees to contact, Family has been contacted by patient , Telephone contact initiated by staff Family contact name: Sarah - daughter & Fitz - son Family contacted how many times per week?: 2 Family contact comment: [phone] & [phone] - Outside Agency [facility] Care involvment: Information-sharing Agency contact number: [phone] - Goals for Treatment Patient goals for treatment: "Please help me, I want to be someone in life, I want o get better." Discharge/Continuing Care - Education Needs Education Needs: Family Medication, Family Diagnosis/Disease Process, Family Coping Skills, Family Placement options, Family Activities of Daily Living, Family Nutrition, Family Uses of Medical Equipment, Family Personal Hygiene/ Grooming, Family Aftercare Safety Plan, Patient Medication, Patient Diagnosis/ Disease Process, Patient Coping Skills, Patient Placement options, Patient Activities of Daily Living, Patient Nutrition, Patient Uses of Medical Equipment , Patient Personal Hygiene/Grooming, Patient Aftercare Safety Plan - Discharge Discharge Criteria: Tolerates medication w/o severe side effects, Free of Suicidal thoughts, Normal sleep pattern, Ability to care for self, Reduction of target symptoms, Other (Reduce of depressive and anxiety symptoms) Discharge to:: Penitentiary - Additional Comments 11/29/17 14:41 Pt seen and discussed in team meeting. Reason for hospitalization reviewed and discussed. Pt reported being referred tot he ED due to "a lot of anxiety, a lot of anxiety, terrible." Pt reported that she has a hx of depression and anxiety for "many years." Pt reported that Klonopin is not working for her at the alf and that she requested for stronger medication, but the MD refused. Pt reported that her anxiety was so bad that she was screaming, yelling , crying, and felt desperate. Pt reported that at that moment she expressed suicide ideation because of the "desperation." Pt denied intent/plan. Pt reported that she began to scream "help me help me" but the nurses did nto listen to her. Pt's medications reviewed. Pt's social and medical issues reviewed. Tx plan reviewed and pt agreeable. Pt provided leader writer with verbal authorization to contact her son, Fitz or daughter, Constance. SW to continue to follow case. - Treatment Team Participation Patient/Family/SO Statement: Major Depressive Disorder; Generalized Anxiety Disorder -Individual and group therapy -Medicine consult -Continue Paxil 40 mg PO Daily -Contine Remeron 30 mg PO HS -Stop Ativan PRN, start Vistaril PRN -Disposition planning Discussed with Family/SO: No Was Patient/Family/SO present at Treatment Team Meeting: Yes Treatment Plan Review Patient participation: Yes Family/SO/Caregiver participation: No Additional Comments: Pt seen and discussed in team meeting. Pt's progress and bx on the unit reviewed and discussed. Team meeting conducted in pt's [place] language, [place]. Pt reported feeling "that anxiety has me going crazy." Pt continued to state "I'm desperate." Pt reported that her anxiety is sudden and has no specific trigger. Pt reported that yesterday, December 06 she felt a sudden anxiety that "I wanted to break everything and run away." Reportedly, pt began to bang her walker and demanding for medication. Pt reported that she was watching television and all of sudden felt anxious and began to cry and ask for help. Pt reported that it lasted approximately 2 hours. Pt denied any triggers or specific time of the day that she feels more anxious than other times. Pt's medications reviewed and discussed. See MD progress note for medication management and updated medications. Psycho-education provided Ativan and Klonopin and the risks of falls and increased confusion reviewed with pt. Pt verbalized understanding of same. Tx plan reviewed and discussed with pt. Pt refused to sign attendance sheet for team meeting. - Problem Problem 1 Time Initiated: 18:54 Hopelessness/Helplessness Date Initiated: 11/27/17 Progress toward outcomes: improved - Discharge / Continuing Care Discharge to:: Penitentiary ([facility] [place]) Behavioral Health Services: Other (Medication Management; Structured group therapy) Health Needs: Follow up care/test, Doctor appointments, Special equipment, Nutritional, Medications/Rx, Educational, Recreational/Social
[2017-12-07] MEDS: Latanoprost 0.005% Opht SOUTION OU SCH (21:07)
[2017-12-08] MEDS: Artificial Tears Opht Soln OU SCH ×4 (05:38→21:16)
--- NOTE | 2017-12-08 12:12 | PCM.PYCHPN ---
Psychiatric Progress Note - Psychiatric Progress Note Patient seen today, length of contact: Patient evaluated, case discussed with team, chart reviewed Patient Chief Complaint: "I'm depressed." Problems Identified/Issues Discussed: Patient reports that she feels anxious and depressed, but is starting to feeling a little better. She has been taking Vistaril PRN anxiety. No current adverse effects to medications reported. No current SI/HI/AH/VH. Medication Change: No Medical Record Reviewed: Yes Consults ordered or reviewed: Medicine consult, Physical therapy Mental Status Examination - Cognitive Function Orientation: Person, Place, Situation, Time Memory: Impaired Attention: WNL Concentration: Poor Association: WNL Fund of Knowledge: WN Decription of patient's judgement and insights: Fair I/J - Mood Mood: Depressed, Anxious - Affect Affect: Constricted, Depressed, Other (Tearful) - Speech Speech: Appropriate - Formal Thought Process Formal Thought Process: No Impairment Psychotic Thoughts and Behaviors: No AH/VH/paranoia/delusions - Suicidal Ideation Suicidal Ideation: No - Homicidal Ideation Homicidal Ideation: No Goal/Treatment Plan - Goal/Treatment Plan Need for Continued Stay: Remain at risks for inpatient hospitalization, Severe depression anxiety, Discharge may exacerbated symptoms Progress Toward Problem(s) and Goals/Treatment Plan: Major Depressive Disorder; Generalized Anxiety Disorder -Individual and group therapy -Medicine consult -Continue Paxil 40 mg PO Daily -Contine Remeron 30 mg PO HS -Continue Vistaril PRN -Disposition planning Estimated Date of D/C: 12/10/17
[2017-12-08] MEDS: Alum-Mag Hydrox-Simethicone Susp (30 mL) PO PRN ×2 (15:57→20:12)
[2017-12-08] MEDS: Latanoprost 0.005% Opht SOUTION OU SCH (21:16)
[2017-12-09] MEDS: Artificial Tears Opht Soln OU SCH ×4 (05:05→21:19)
--- NOTE | 2017-12-09 08:46 | PCM.PYCHPN ---
Psychiatric Progress Note - Psychiatric Progress Note Patient seen today, length of contact: Patient evaluated, case discussed with team, chart reviewed Patient Chief Complaint: "I'm anxious." Problems Identified/Issues Discussed: Patient reports that she feels less anxious and depressed. She is calm and cooperative with writer editor and believes she is ready to be discharged tomorrow due ot continued clinical improvement. She has been taking Vistaril PRN anxiety. No current adverse effects to medications reported. No current SI/HI/AH/VH. Medication Change: No Medical Record Reviewed: Yes Consults ordered or reviewed: Medicine consult, Physical therapy Mental Status Examination - Cognitive Function Orientation: Person, Place, Situation, Time Memory: Impaired Attention: WNL Concentration: Poor Association: WNL Fund of Knowledge: WNL Decription of patient's judgement and insights: Fair I/J - Mood Mood: Anxious - Affect Affect: Constricted - Speech Speech: Appropriate - Formal Thought Process Formal Thought Process: No Impairment Psychotic Thoughts and Behaviors: No AH/VH/paranoia/delusions - Suicidal Ideation Suicidal Ideation: No - Homicidal Ideation Homicidal Ideation: No Goal/Treatment Plan - Goal/Treatment Plan Need for Continued Stay: Severe depression anxiety, Discharge may exacerbated symptoms Progress Toward Problem(s) and Goals/Treatment Plan: Major Depressive Disorder; Generalized Anxiety Disorder -Individual and group therapy -Medicine consult -Continue Paxil 40 mg PO Daily -Contine Remeron 30 mg PO HS -Continue Vistaril PRN -Disposition planning- likely discharge tomorrow if patient continues to improve clinically Estimated Date of D/C: 12/10/17
[2017-12-09] MEDS: Alum-Mag Hydrox-Simethicone Susp (30 mL) PO PRN (20:28)
[2017-12-09] MEDS: Latanoprost 0.005% Opht SOUTION OU SCH (21:20)
[2017-12-10] MEDS: Artificial Tears Opht Soln OU SCH (04:52)
[2017-12-10 05:58] VITALS: RESP 18; TEMP 97.1
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
[2017-12-10 08:26] VITALS: BP 149/79; PULSE 87
== END 2017-12-10 12:00 | DRG 881 ==
LOC: H.ER 11:25 → H.ERHOLD 14:45 → H.STEP 18:18
PROVIDERS: ADMIT Psychiatry & Neurology Psychiatry; ATTEND Psychiatry & Neurology Psychiatry
PROC: GZ51ZZZ Individual Psychotherapy, Behavioral (ICD-10-PCS; 2017-11-27)
PROC: GZHZZZZ Group Psychotherapy (ICD-10-PCS; principal; 2017-12-01)
DX: F32.9 Major depressive disorder, single episode, unspecified (principal); R45.851 Suicidal ideations; F13.20 Sedative, hypnotic or anxiolytic dependence, uncomplicated; F41.1 Generalized anxiety disorder; I10 Essential (primary) hypertension; Z79.899 Other long term (current) drug therapy; G89.29 Other chronic pain; G47.9 Sleep disorder, unspecified; E78.00 Pure hypercholesterolemia, unspecified; F03.90 Unspecified dementia, unspecified severity, without behavioral disturbance, psychotic disturbance, mood disturbance, and anxiety; F31.9 Bipolar disorder, unspecified